=== PATIENT | male | born 1985 | race Caucasian/White ===

== ENCOUNTER 2024-12-15 12:10 | Emergency (ER) | payer MEDICAID ==
[~2024-12-15] VITALS: Ht 188 cm; Wt 90.7 kg
[2024-12-15 12:59] LABS: PLATELET COUNT (AUTO) 232 K/uL (150-450); RED BLOOD CELL COUNT(AUTO) 5.81 MIL/uL (4.5-6.0); RED CELL DISTRIBUTION WIDTH 17.6 % (11.5-15.0); WHITE BLOOD COUNT (AUTO) 5.0 K/uL (4.3-11.0)
[2024-12-15] MEDS: ONDANSETRON HCL/PF 4 MG/2 ML VIAL IVP ONE (13:00)
[2024-12-15] MEDS: IV NS 0.9% 1,000 ML BAG IV ONE (13:00)
[2024-12-15 13:12] LABS: CALCIUM, SERUM 8.2 mg/dL (8.5-10.1); CREATININE 1.1 mg/dL (0.6-1.3); SODIUM SERUM 138 mmol/L (136-145); UREA NITROGEN, BLOOD 14 mg/dL (7-18)
[2024-12-15 13:16] LABS: ALCOHOL, BLOOD 242 mg/dL (0-10); ASPARTATE AMINOTRANSFERASE 83 U/L (15-37); TOTAL PROTEIN, SERUM 7.5 g/dL (6.4-8.2)
[2024-12-15] MEDS ORDERED: ONDANSETRON HCL/PF 4 MG/2 ML VIAL ONE ×2 (13:21→17:10)
[2024-12-15] MEDS ORDERED: LORAZEPAM INJ 2 MG/ML VIAL ONE ×2 (13:22→14:31)
[2024-12-15] MEDS: LORAZEPAM INJ 2 MG/ML VIAL IVP ONE (13:30)
[2024-12-15 13:50] LABS: APPEARANCE,URINE CLEAR (CLEAR); BLOOD, URINE TRACE-INTA Ery/uL (NEGATIVE); LEUKOCYTE ESTERASE ,URINE NEGATIVE (NEGATIVE); NITRITE, URINE NEGATIVE (NEGATIVE); UGLUCOSE TRACE mg/dL (NEGATIVE)
[2024-12-15 13:56] LABS: AMPHETAMINE, URINE NEGATIVE (NEGATIVE); BARBITURATE, URINE NEGATIVE (NEGATIVE); BENZODIAZEPINE, URINE NEGATIVE (NEGATIVE); COCCAINE, URINE NEGATIVE (NEGATIVE); OPIATE, URINE NEGATIVE (NEGATIVE)
[2024-12-15 13:57] LABS: CANNABINOID, URINE POSITIVE (NEGATIVE)
[2024-12-15] MEDS: LORAZEPAM INJ 2 MG/ML VIAL IV ONE (14:00)
[2024-12-15 14:03] LABS: ADD URINE CULTURE NO; SQUAMOUS EPITHELIAL CELL,UR Few /HPF (None Seen)
[2024-12-15] MEDS ORDERED: POTASSIUM CHLORIDE 20 MEQ TAB.PRT.SR PO ONE (15:39)
[2024-12-15] MEDS: POTASSIUM CHLORIDE 20 MEQ TAB.PRT.SR PO ONE (15:43)
[2024-12-15] MEDS: ONDANSETRON HCL/PF 4 MG/2 ML VIAL IV ONE (17:30)
[2024-12-15 17:39] VITALS: BP 139/91; TEMP 98.4; O2SAT 99
== END 2024-12-15 17:39 | disposition home or self-care (01) ==
LOC: ER 12:23
DX: F10.239 Alcohol dependence with withdrawal, unspecified (principal); R07.89 Other chest pain; Y90.9 Presence of alcohol in blood, level not specified
CPT/HCPCS: 99291; 96374; 96361; 96375; 93005; 96376; 85025; 80048; 80076; 83735; 81001; 36415; 84484; 80143; 80320; 80307; J2060 ×2; J2405 ×2; J7030; G0480